=== PATIENT | female | born 1980 | race American Indian/Alaskan Native ===

== ENCOUNTER → 2017-07-09 | Emergency (ER) | payer OTHER ==
[~2017-07-09] VITALS: Ht 157.5 cm; Wt 49.0 kg
== END | disposition home or self-care (01) ==
LOC: ER 22:37
DX: R10.2 Pelvic and perineal pain (principal)

== ENCOUNTER 2017-12-04 11:28 | Outpatient (CLI) | payer OTHER | END 2017-12-04 11:35 | disposition home or self-care (01) | LOC: RAD 501 11:28 | DX: M54.2 Cervicalgia (principal); M54.5 Low back pain ==